=== PATIENT | male | born 1990 | race Caucasian/White ===

== ENCOUNTER 2018-10-13 20:14 | Observation (INO) | payer SELFPAY ==
[2018-10-13] MEDS ORDERED: Morphine 10 MG/ML Syringe ONE (20:18)
[2018-10-13] MEDS ORDERED: Ondansetron 4 MG/2 ML SDV ONE (20:21)
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
[2018-10-13] MEDS ORDERED: Morphine 10 MG/ML Syringe IVPUSH ONE (20:25)
[2018-10-13] MEDS ORDERED: Sodium Chloride 0.9% 1,000 ML IV ONE (20:26)
[2018-10-13] MEDS ORDERED: Diphtheria,Pertussis(Acell),Tetanus Vaccine 0.5 ML Syringe ONE (20:28)
[2018-10-13] MEDS ORDERED: Morphine 4 MG/ML Syringe ONE (20:35)
[2018-10-13] MEDS ORDERED: Morphine 4 MG/ML Syringe IVPUSH ONE (20:37)
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
[2018-10-13] MEDS ORDERED: Bisacodyl 5 MG Tab PO PRN (20:54)
[2018-10-13] MEDS ORDERED: diphenhydrAMINE 50 MG/ML SDV IVPUSH PRN (20:54)
[2018-10-13] MEDS ORDERED: Sodium Chloride 0.9% 10 ML SDV IV PRN (20:54)
[2018-10-13] MEDS ORDERED: Ondansetron 4 MG/2 ML SDV IVPUSH PRN (20:54)
[2018-10-13] MEDS ORDERED: Sodium Chloride 0.9% 10 ML Syringe FLUSH PRN (20:54)
[2018-10-13] MEDS ORDERED: Sodium Chloride 0.9% 2.5 ML Syringe FLUSH PRN (20:54)
[2018-10-13] MEDS ORDERED: Lactated Ringers 1,000 ML IV SCH (21:00)
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
[2018-10-13] MEDS: HYDROmorphone 2 MG/ML Syringe IVPUSH PRN (21:31)
[2018-10-13] MEDS: Bacitracin Oint 28.35 GM Tube TOP SCH (21:32)
[2018-10-13] MEDS ORDERED: Sodium Chloride 0.9% 1,000 ML IV SCH (21:45)
[2018-10-13] MEDS: Sodium Chloride 0.9% 1,000 ML IV SCH (22:11)
[2018-10-13] MEDS: Acetaminophen/HYDROcodone 325-5 MG Tab PO PRN (22:54)
[2018-10-14] MEDS: Acetaminophen/HYDROcodone 325-5 MG Tab PO PRN ×4 (04:25→22:34)
[2018-10-14] MEDS: HYDROmorphone 2 MG/ML Syringe IVPUSH PRN (04:28)
[2018-10-14] MEDS: Omeprazole 20 MG Cap.CR PO SCH (06:30)
[2018-10-14 06:37] LABS: CHLORIDE,CL 109 mmol/L (98-107); SODIUM,NA 142 mmol/L (136-148)
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
[2018-10-14] MEDS: Bacitracin Oint 28.35 GM Tube TOP SCH (09:50)
[2018-10-14] MEDS: Sodium Chloride 0.9% 1,000 ML IV SCH ×3 (11:36→21:56)
[2018-10-14] MEDS ORDERED: fentaNYL 100 MCG/2 ML SDV ONE (12:58)
[2018-10-14] MEDS ORDERED: Lidocaine 2% 5 ML SDV ONE (12:58)
[2018-10-14] MEDS ORDERED: Midazolam 1 MG/ML 2 ML SDV ONE (12:58)
[2018-10-14] MEDS ORDERED: Propofol 200 MG/20 ML SDV ONE (12:59)
[2018-10-14] MEDS ORDERED: Ondansetron 4 MG/2 ML SDV ONE (13:52)
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
[2018-10-14] MEDS ORDERED: fentaNYL 100 MCG/2 ML SDV IVPUSH PRN (14:31)
--- NOTE | 2018-10-14 15:21 | PCM.POSTAN ---
POST ANESTHESIA ASSESSMENT - MENTAL STATUS Mental Status: Alert, Oriented - VITAL SIGNS Vital Signs: Last Vital Signs Temp 99.0 F 10/14/18 11:00 Pulse 97 10/14/18 15:09 Resp 15 10/14/18 15:09 BP 133/68 10/14/18 15:09 Pulse Ox 97 10/14/18 15:09 - RESPIRATORY Respiratory Status: Respiratory Rate WNL, Airway Patent, O2 Saturation Stable - CARDIOVASCULAR CV Status: Pulse Rate WNL, Blood Pressure Stable - GASTROINTESTINAL GI Status: No Symptoms - POST OP HYDRATION Hydration Status: Adequate & Stable
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
[2018-10-15] MEDS: Acetaminophen/HYDROcodone 325-5 MG Tab PO PRN ×3 (04:43→17:17)
[2018-10-15] MEDS: Sodium Chloride 0.9% 1,000 ML IV SCH ×2 (04:44→12:56)
[2018-10-15] MEDS: Omeprazole 20 MG Cap.CR PO SCH (06:53)
[2018-10-15] MEDS ORDERED: Bacitracin Oint 28.35 GM Tube TOP SCH (12:00)
[2018-10-15] MEDS: HYDROmorphone 2 MG/ML Syringe IVPUSH PRN (12:40)
[2018-10-15] MEDS ORDERED: HYDROmorphone 2 MG/ML Syringe IVPUSH ONE (13:10)
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
== END 2018-10-15 17:50 | disposition home or self-care (01) ==
LOC: MW.ED 20:14 → MW.MS 20:55
PROVIDERS: ADMIT Surgery; ATTEND Surgery
DX: T20.20XA Burn of second degree of head, face, and neck, unspecified site, initial encounter (principal); T20.212A Burn of second degree of left ear [any part, except ear drum], initial encounter; T20.211A Burn of second degree of right ear [any part, except ear drum], initial encounter; T22.20XA Burn of second degree of shoulder and upper limb, except wrist and hand, unspecified site, initial encounter; T23.202A Burn of second degree of left hand, unspecified site, initial encounter; T23.201A Burn of second degree of right hand, unspecified site, initial encounter; T24.202A Burn of second degree of unspecified site of left lower limb, except ankle and foot, initial encounter; T31.11 Burns involving 10-19% of body surface with 10-19% third degree burns; W40.1XXA Explosion of explosive gases, initial encounter
CPT/HCPCS: 36415; 71045; 80048; 80053; 81003; 85025; 85027; 85610; 90471; 90715; 93005; 96361; 96374; 96375; 96376; 99285; A9270; G0378; J1170; J2001; J2250; J2270; J2405; J2704; J3010; J7040; 00400; 99284

== ENCOUNTER 2019-08-15 23:54 | Emergency (ER) | payer BC, OTHER ==
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
[2019-08-16] MEDS ORDERED: fentaNYL 50 MCG/ML SDV IM ONE (00:17)
--- NOTE | 2019-08-16 00:37 | CR ---
INDICATION: Finger injury, laceration TECHNIQUE: Finger radiograph 3 views right 3rd COMPARISON: None FINDINGS: Bone: No acute fractures or aggressive bone lesions are identified. Joint: The carpal and metacarpal-phalangeal joints are unremarkable in appearance. The interphalangeal joints are normal in appearance. Soft tissue: Soft tissue laceration injury noted along the distal finger tip. Scattered punctate densities are noted along the distal injury site and along the dorsal 3rd digit near the PIP joint. IMPRESSION: 1. No acute osseous injuries or abnormalities are noted. 2. Scattered punctate densities are noted along the distal injury site and along the dorsal 3rd digit near the PIP joint. These are likely overlying skin debris but correlation with physical exam recommended to exclude foreign bodies. Dictated by: Gino Alexander MD @ 08/16/2019 00:35:37 (Electronically Signed)
== END 2019-08-16 01:30 | disposition home or self-care (01) ==
LOC: MW.ED 23:54
DX: S61.302A Unspecified open wound of right middle finger with damage to nail, initial encounter (principal); W26.8XXA Contact with other sharp object(s), not elsewhere classified, initial encounter; Y92.89 Other specified places as the place of occurrence of the external cause; Y99.0 Civilian activity done for income or pay
CPT/HCPCS: 73140; 96372; 99283; J3010; 99284

== ENCOUNTER 2024-03-06 18:45 | Emergency (ER) | payer SELFPAY ==
[2024-03-06] MEDS: Acetaminophen 500 MG Tab PO ONE (19:49)
[2024-03-06] MEDS: Ketorolac 30 MG/ML SDV IVPUSH ONE (19:55)
[2024-03-06] MEDS: Sodium Chloride 0.9% 1,000 ML IV ONE (19:55)
[2024-03-06] MEDS: Ibuprofen 600 MG Tab PO ONE (19:59)
[2024-03-06 20:01] LABS: BASOPHILS ABSOLUTE AUTO 0.02 K/uL (0.00-0.20); BASOPHILS PERCENT AUTO 0.3 % (0.0-1.0); EOSINOPHILS ABSOLUTE AUTO 0.02 K/uL (0.00-0.45); EOSINOPHILS PERCENT AUTO 0.3 % (0.0-6.0); HEMATOCRIT 43.6 % (42.0-52.0); HEMOGLOBIN 15.1 g/dL (14.0-18.0); IMMATURE GRAN ABSOLUTE AUTO 0.01 K/uL (0.00-0.05); IMMATURE GRAN PERCENT AUTO 0.1 % (0.0-0.4); LYMPHOCYTES ABSOLUTE AUTO 1.14 K/uL (1.00-4.80); LYMPHOCYTES PERCENT AUTO 16.9 % (24.0-44.0); MEAN CORPUSCULAR HEMOGLOBIN 28.8 pg (28.0-32.0); MEAN CORPUSCULAR HGB CONC 34.6 g/dL (32.0-36.0); MONOCYTES ABSOLUTE AUTO 0.96 K/uL (0.00-0.80); MONOCYTES PERCENT AUTO 14.2 % (0.0-8.0); NEUTROPHILS ABSOLUTE AUTO 4.59 K/uL (1.80-7.70); NEUTROPHILS PERCENT AUTO 68.2 % (41.0-71.0); PLATELET COUNT,PLT 185 K/uL (150-400); RED BLOOD CELL COUNT 5.25 M/uL (4.52-5.90); WHITE BLOOD CELL COUNT,WBC 6.74 K/uL (3.9-11.3)
[2024-03-06 20:23] LABS: A/G RATIO 0.8 (0.9-1.6); ALBUMIN 3.6 g/dL (3.4-5.0); BILIRUBIN TOTAL 0.4 mg/dL (0.2-1.0); CALCIUM 9.2 mg/dL (8.5-10.1); CARBON DIOXIDE,CO2 27.6 mmol/L (21.0-32.0); CREATININE 1.2 mg/dL (0.8-1.3); EST CRCL DRUG DOSING (CG) 94.13 mL/min; POTASSIUM,K 4.5 mmol/L (3.5-5.1); PROTEIN TOTAL,TP 8.3 g/dL (6.4-8.2)
[2024-03-06] MEDS: Amoxicillin/Clavulanate K 875-125 MG Tab PO ONE (21:27)
[2024-03-06] MEDS: Azithromycin 250 MG Tab PO STA (21:28)
== END 2024-03-06 21:18 | disposition home or self-care (01) ==
LOC: MW.ED 18:45
DX: J18.9 Pneumonia, unspecified organism (principal); Z75.8 Other problems related to medical facilities and other health care; Z79.899 Other long term (current) drug therapy
CPT/HCPCS: 36415; 71046; 80053; 85025; 86308; 87428; 87651; 96374; 99284; A9270; J1885; J7030

== ENCOUNTER 2024-12-28 19:40 | Emergency (ER) | payer SELFPAY ==
[2024-12-28] MEDS: diphenhydrAMINE 50 MG/ML SDV IVPUSH ONE (19:54)
[2024-12-28] MEDS: Dexamethasone Sod Phos Preservative Free 10 MG/ML Vial IVPUSH ONE (19:54)
== END 2024-12-28 21:21 | disposition home or self-care (01) ==
LOC: MW.ED 19:40
DX: T78.19XA Other adverse food reactions, not elsewhere classified, initial encounter (principal); R20.2 Paresthesia of skin; Z79.899 Other long term (current) drug therapy
CPT/HCPCS: 96361; 96374; 96375; 99283; J1100; J1200; J1308; J7030